=== PATIENT | female | born 1965 | race American Indian/Alaskan Native ===

== ENCOUNTER 2017-01-24 18:40 | Emergency (ER) | payer OTHER ==
[2017-01-24] MEDS ORDERED: CATAPRES ONE (20:29)
[2017-01-24] MEDS ORDERED: CATAPRES PO ONE (20:36)
[2017-01-24 21:00] LABS: Hematocrit 34.8 % (30.3-42.9); Hemoglobin 11.7 gm/dl (10.1-14.3); Mean Corpuscular HGB Conc 34 % (30-34); Mean Corpuscular Hemoglobin 33 pg (28-32); Mean Corpuscular Volume 97 fl (79-97); Platelet Count 210 K/mm3 (140-440); Red Blood Count 3.59 M/mm3 (3.65-5.03); Red Cell Distribution Width 13.8 % (13.2-15.2); White Blood Count 4.7 K/mm3 (4.5-11.0)
[2017-01-24 21:09] LABS: INR 0.95 (0.87-1.13); Partial Thromboplastin Time 32.6 Sec. (24.2-36.6)
[2017-01-24 21:10] LABS: Creatine Kinase MB 2.9 ng/mL (0.0-4.0)
[2017-01-24 21:11] LABS: Anion Gap 14 mmol/L; Blood Urea Nitrogen 24 mg/dL (7-17); Calcium 8.2 mg/dL (8.4-10.2); Carbon Dioxide 22 mmol/L (22-30); Chloride 104.1 mmol/L (98-107); Creatine Kinase 174 units/L (30-135); Glucose 92 mg/dL (65-100); Potassium 3.5 mmol/L (3.6-5.0); Sodium 137 mmol/L (137-145)
[2017-01-24 21:42] LABS: Basophils % (Manual) 0 % (0.0-1.8); Blastocytes % (Manual) 0 %
[2017-01-24 21:43] LABS: Diff Status Complete; Ovalocytes 1+; Poikilocytosis Few
[2017-01-25 03:08] VITALS: BP 124/90
[2017-01-25] MEDS ORDERED: K-DUR PO ONE (03:16)
--- NOTE | 2017-01-25 04:18 | Emergency Department Report ---
ED Neuro Deficit HPI - General Chief Complaint: High BP Stated Complaint: LT ARM TINGLING Time Seen by Provider: 01/25/17 03:00 Source: patient Mode of arrival: Ambulatory Limitations: No Limitations - History of Present Illness Initial Comments: 51-year-old female the past medical history hypertension, lupus, and hypothyroidism presents to the hospital complains of left arm tingling 2 days and uncontrolled blood pressure. Patient's tingling to the distal left arm from mid forearm down to her fingers. Symptoms are intermittent for the last 3- 4 weeks. No aggravating or alleviating factors reported. Patient denies any pain. She denies any weakness, chest pain, shortness of breath, nausea, vomiting, headache, or blurred vision. Patient presents with elevated blood pressure stay she has been compliant with her blood pressure medication. - Related Data Home Medications: Home Medications Medication Instructions Recorded Confirmed Last Taken Gabapentin [Neurontin] 100 mg PO Q8HR 01/25/17 01/25/17 01/25/17 Levothyroxine [Synthroid] 88 mcg PO QAM 01/25/17 01/25/17 01/25/17 NIFEdipine XL [Procardia Xl] 60 mg PO QDAY 01/25/17 01/25/17 01/25/17 Previous Rx's Medication Instructions Recorded Last Taken Type NIFEdipine XL [Procardia Xl] 90 mg PO QDAY #30 tablet 01/25/17 Unknown Rx Allergies/Adverse Reactions: Allergies Allergy/AdvReac Type Severity Reaction Status Date / Time No Known Allergies Allergy Verified 01/24/17 20:21 ED Review of Systems ROS: Stated complaint: LT ARM TINGLING Other details as noted in HPI Comment: All other systems reviewed and negative Other: Constitutional: No fevers chills Eyes: No eye pain visual changes ENT: No ear pain or throat pain Neck: Denies pain Respiratory: Denies cough wheezing shortness of breath Cardiovascular: Denies chest pain, palpitations, syncope GI: Denies abdominal pain, nausea, vomiting, diarrhea : Denies dysuria, urinary frequency, or urgency Musculoskeletal: Denies back pain, joint swelling Skin: Denies rash, lesions, erythema Neurologic: Denies headache Psychiatric: Denies suicidal ideation, hallucinations ED Past Medical Hx - Past Medical History Previous Medical History?: Yes Hx Hypertension: Yes Additional medical history: Lupus, Hypothyroid - Surgical History Additional Surgical History: Hyst, Fibroids, - Social History Smoking Status: Current Every Day Smoker Substance Use Type: Alcohol - Medications Home Medications: Home Medications Medication Instructions Recorded Confirmed Last Taken Type Gabapentin [Neurontin] 100 mg PO Q8HR 01/25/17 01/25/17 01/25/17 History Levothyroxine [Synthroid] 88 mcg PO QAM 01/25/17 01/25/17 01/25/17 History NIFEdipine XL [Procardia Xl] 60 mg PO QDAY 01/25/17 01/25/17 01/25/17 History NIFEdipine XL [Procardia Xl] 90 mg PO QDAY #30 tablet 01/25/17 Unknown Rx ED Neuro Physical Exam - General Limitations: No Limitations Suspected Stroke: No - NIHSS Assessment Interval: Baseline 1a. Level of Consciousness: alert 1b. LOC Questions: answers correctly 1c. LOC Commands: performs tasks correctly 2. Best Gaze: normal 3. Visual: no visual loss 4. Facial Palsy: normal symmetrical movement 5b. Motor Arm Right: no drift 5a. Motor Arm Left: no drift 6a. Motor Leg Left: no drift 6b. Motor Leg Right: no drift 7. Limb Ataxia: absent 8. Sensory: normal 9. Best Language: no aphasia 10. Dysarthria: normal 11. Extinction/Inattention: no abnormality Total Score: 0 Stroke Severity: No Stroke Symptoms - Other Other exam information: General: No limitations, patient is alert in no acute distress Head exam: Atraumatic, normocephalic Eyes exam: Normal appearance, pupils equal reactive to light, extraocular movements intact ENT: Moist mucous membrane, normal oropharynx Neck exam: Normal inspection, full range of motion, no meningismus nontender Respiratory exam: Clear to auscultation bilateral, no wheezes, rales, crackles Cardiovascular: Normal rate and rhythm, normal heart sounds Abdomen: Soft, nondistended, and nontender, with normal bowel sounds, no rebound, or guarding Extremity: Full range of motion normal inspection no deformity Back: Normal Inspection, full range of motion, no tenderness Neurologic: Alert, oriented x3, cranial nerves intact, no motor or sensory deficit Psychiatric: normal affect, normal mood Skin: Warm, dry, intact ED Course Vital Signs 01/24/17 01/24/17 01/24/17 19:25 20:37 21:53 Temperature 98.5 F Pulse Rate 78 78 Respiratory 20 Rate Blood Pressure 179/108 179/108 136/79 Blood Pressure [Right] O2 Sat by Pulse 100 98 Oximetry 01/24/17 01/24/17 01/24/17 21:55 22:00 22:10 Temperature Pulse Rate Respiratory Rate Blood Pressure 136/79 136/85 Blood Pressure 147/98 [Right] O2 Sat by Pulse 99 97 Oximetry 01/24/17 01/24/17 01/24/17 22:20 22:30 22:40 Temperature Pulse Rate Respiratory Rate Blood Pressure 130/84 130/84 125/86 Blood Pressure [Right] O2 Sat by Pulse 98 97 97 Oximetry 01/24/17 01/24/17 01/24/17 22:50 23:00 23:10 Temperature Pulse Rate Respiratory Rate Blood Pressure 137/90 137/90 127/82 Blood Pressure [Right] O2 Sat by Pulse 98 100 99 Oximetry 01/24/17 01/24/17 01/24/17 23:20 23:30 23:40 Temperature Pulse Rate Respiratory Rate Blood Pressure 131/85 131/85 125/78 Blood Pressure [Right] O2 Sat by Pulse 98 98 98 Oximetry 01/24/17 01/25/17 01/25/17 23:50 01:53 02:00 Temperature Pulse Rate Respiratory Rate Blood Pressure 128/79 123/81 122/86 Blood Pressure [Right] O2 Sat by Pulse 90 99 98 Oximetry 01/25/17 01/25/17 01/25/17 02:10 02:20 02:30 Temperature Pulse Rate Respiratory Rate Blood Pressure 122/86 115/83 118/86 Blood Pressure [Right] O2 Sat by Pulse 100 100 Oximetry 01/25/17 01/25/17 01/25/17 02:40 02:50 03:00 Temperature Pulse Rate Respiratory Rate Blood Pressure 118/86 118/78 124/90 Blood Pressure [Right] O2 Sat by Pulse 100 99 Oximetry - Reevaluation(s) Reevaluation #1: 01/25/17 04:17 Blood pressure improved with clonidine 0.2 mg in the ED - Lab Data Result diagrams: 01/24/17 20:33 01/24/17 20:33 Lab Results 01/24/17 01/24/17 01/24/17 Range/Units 20:33 20:33 20:33 WBC 4.7 (4.5-11.0) K/mm3 RBC 3.59 L (3.65-5.03) M/mm3 Hgb 11.7 (10.1-14.3) gm/dl Hct 34.8 (30.3-42.9) % MCV 97 (79-97) fl MCH 33 H (28-32) pg MCHC 34 (30-34) % RDW 13.8 (13.2-15.2) % Plt Count 210 (140-440) K/mm3 [place] % (Auto) Mail Weigher Add Manual Diff Complete Total Counted 100 Seg Neuts % (Manual) 44.0 (40.0-70.0) % Band Neutrophils % 0 % Lymphocytes % (Manual) 36.0 H (13.4-35.0) % Reactive Lymphs % (Man) 2.0 % Monocytes % (Manual) 17.0 H (0.0-7.3) % Eosinophils % (Manual) 1.0 (0.0-4.3) % Basophils % (Manual) 0 (0.0-1.8) % Metamyelocytes % 0 % Myelocytes % 0 % Promyelocytes % 0 % Blast Cells % 0 % Nucleated RBC % Not Reportable Seg Neutrophils # Man 2.1 (1.8-7.7) K/mm3 Band Neutrophils # 0.0 K/mm3 Lymphocytes # (Manual) 1.7 (1.2-5.4) K/mm3 Abs React Lymphs (Man) 0.1 K/mm3 Monocytes # (Manual) 0.8 (0.0-0.8) K/mm3 Eosinophils # (Manual) 0.0 (0.0-0.4) K/mm3 Basophils # (Manual) 0.0 (0.0-0.1) K/mm3 Metamyelocytes # 0.0 K/mm3 Myelocytes # 0.0 K/mm3 Promyelocytes # 0.0 K/mm3 Blast Cells # 0.0 K/mm3 WBC Morphology Not Reportable Hypersegmented Neuts Not Reportable Hyposegmented Neuts Not Reportable Hypogranular Neuts Not Reportable Smudge Cells Not Reportable Toxic Granulation Not Reportable Toxic Vacuolation Not Reportable Dohle Bodies Not Reportable Pelger-Huet Anomaly Not Reportable [place] Rods Not Reportable Platelet Estimate Appears normal Clumped Platelets Not Reportable Plt Clumps, EDTA Not Reportable Large Platelets Not Reportable Giant Platelets Not Reportable Platelet Satelliting Not Reportable Plt Morphology Comment Not Reportable RBC Morphology Not Reportable Dimorphic RBCs Not Reportable Polychromasia Not Reportable Hypochromasia Not Reportable Poikilocytosis Few Anisocytosis Not Reportable Microcytosis Not Reportable Macrocytosis Not Reportable Spherocytes Not Reportable Pappenheimer Bodies Not Reportable Sickle Cells Not Reportable Target Cells Not Reportable Tear Drop Cells Not Reportable Ovalocytes 1+ Helmet Cells Not Reportable [place] Bodies Not Reportable [place] Rings Not Reportable [place] Cells Not Reportable Bite Cells Not Reportable Crenated Cell Not Reportable Elliptocytes Not Reportable Acanthocytes (Spur) Not Reportable Rouleaux Not Reportable Hemoglobin C Crystals Not Reportable Schistocytes Not Reportable Malaria parasites Not Reportable [place] Bodies Not Reportable Hem Pathologist Commnt No PT 12.6 (12.2-14.9) Sec. INR 0.95 (0.87-1.13) APTT 32.6 (24.2-36.6) Sec. Sodium 137 (137-145) mmol/L Potassium 3.5 L (3.6-5.0) mmol/L Chloride 104.1 (98-107) mmol/L Carbon Dioxide 22 (22-30) mmol/L Anion Gap 14 mmol/L BUN 24 H (7-17) mg/dL Creatinine 0.8 (0.7-1.2) mg/dL Estimated GFR > 60 ml/min BUN/Creatinine Ratio 30.00 % Glucose 92 (65-100) mg/dL Calcium 8.2 L (8.4-10.2) mg/dL Magnesium (1.7-2.3) mg/dL Total Creatine Kinase 174 H (30-135) units/L CK-MB (CK-2) 2.9 (0.0-4.0) ng/mL CK-MB (CK-2) Rel Index 1.6 (0-4) Troponin T < 0.010 (0.00-0.029) ng/mL 01/25/17 01/25/17 01/25/17 Range/Units 00:03 03:32 04:16 WBC (4.5-11.0) K/mm3 RBC (3.65-5.03) M/mm3 Hgb (10.1-14.3) gm/dl Hct (30.3-42.9) % MCV (79-97) fl MCH (28-32) pg MCHC (30-34) % RDW (13.2-15.2) % Plt Count (140-440) K/mm3 [place] % (Auto) Add Manual Diff Total Counted Seg Neuts % (Manual) (40.0-70.0) % Band Neutrophils % % Lymphocytes % (Manual) (13.4-35.0) % Reactive Lymphs % (Man) % Monocytes % (Manual) (0.0-7.3) % Eosinophils % (Manual) (0.0-4.3) % Basophils % (Manual) (0.0-1.8) % Metamyelocytes % % Myelocytes % % Promyelocytes % % Blast Cells % % Nucleated RBC % Seg Neutrophils # Man (1.8-7.7) K/mm3 Band Neutrophils # K/mm3 Lymphocytes # (Manual) (1.2-5.4) K/mm3 Abs React Lymphs (Man) K/mm3 Monocytes # (Manual) (0.0-0.8) K/mm3 Eosinophils # (Manual) (0.0-0.4) K/mm3 Basophils # (Manual) (0.0-0.1) K/mm3 Metamyelocytes # K/mm3 Myelocytes # K/mm3 Promyelocytes # K/mm3 Blast Cells # K/mm3 WBC Morphology Hypersegmented Neuts Hyposegmented Neuts Hypogranular Neuts Smudge Cells Toxic Granulation Toxic Vacuolation Dohle Bodies Pelger-Huet Anomaly [place] Rods Platelet Estimate Clumped Platelets Plt Clumps, EDTA Large Platelets Giant Platelets Platelet Satelliting Plt Morphology Comment RBC Morphology Dimorphic RBCs Polychromasia Hypochromasia Poikilocytosis Anisocytosis Microcytosis Macrocytosis Spherocytes Pappenheimer Bodies Sickle Cells Target Cells Tear Drop Cells Ovalocytes Helmet Cells [place] Bodies [place] Rings Jaime Cells Bite Cells Crenated Cell Elliptocytes Acanthocytes (Spur) Rouleaux Hemoglobin C Crystals Schistocytes Malaria parasites [place] Bodies Hem Pathologist Commnt PT (12.2-14.9) Sec. INR (0.87-1.13) APTT (24.2-36.6) Sec. Sodium (137-145) mmol/L Potassium (3.6-5.0) mmol/L Chloride (98-107) mmol/L Carbon Dioxide (22-30) mmol/L Anion Gap mmol/L BUN (7-17) mg/dL Creatinine (0.7-1.2) mg/dL Estimated GFR ml/min BUN/Creatinine Ratio % Glucose (65-100) mg/dL Calcium (8.4-10.2) mg/dL Magnesium 1.7 (1.7-2.3) mg/dL Total Creatine Kinase (30-135) units/L CK-MB (CK-2) (0.0-4.0) ng/mL CK-MB (CK-2) Rel Index (0-4) Troponin T < 0.010 < 0.010 (0.00-0.029) ng/mL - EKG Data -: EKG Interpreted by Me (sinus rhythm rate 79) When compared to previous EKG there are: no significant change (compared to 01/2011) - Medical Decision Making Other differential: Radiculopathy Patient having ongoing intermittent paresthesias to left distal hand not consistent with stroke symptoms. Blood pressure improved with clonidine. Labs unremarkable. EKG without signs of CT or acute coronary syndrome. Patient be discharged home with increasing her nifedipine to 90 mg once a day. PMD follow- up will be encouraged. Patient received 1 dose of by mouth potassium for mild hypokalemia. - Differential Diagnosis uncontrolled hypertension, hypertensive emergency/urgency, CVA, neuropathy Critical Care Time: No Critical care attestation.: If time is entered above; I have spent that time in minutes in the direct care of this critically ill patient, excluding procedure time. ED Disposition Clinical Impression: Uncontrolled hypertension, Paresthesia, Hypokalemia Disposition: DISCHARGED TO HOME OR SELFCARE Is pt being admited?: No Does the pt Need Aspirin: No Condition: Stable Instructions: Hypokalemia (ED), Paresthesia (ED), Hypertension (ED) Additional Instructions: To better control your blood pressure, I recommended increasing your nifedipine to 90 mg once a day. I have written for a new prescription. Continue to monitor blood pressure at home. Follow up with your primary care doctor for further evaluation. Prescriptions: NIFEdipine XL [Procardia Xl] 90 mg PO QDAY #30 tablet Referrals: MERVAT LEONARD MD [Primary Care Provider] - 3-5 Days Time of Disposition: :46
== END 2017-01-25 04:56 | disposition left against medical advice (07) ==
LOC: ED 18:40
DX: I10 Essential (primary) hypertension (principal); R20.2 Paresthesia of skin; E87.6 Hypokalemia; E03.9 Hypothyroidism, unspecified; F17.200 Nicotine dependence, unspecified, uncomplicated
CPT/HCPCS: 36415; 80048; 82550; 82553; 83735; 84484; 85007; 85025; 85610; 85730; 93005; 93010; 99284